=== PATIENT | female | born 1980 | race Caucasian/White ===

== ENCOUNTER → 2016-11-19 | Outpatient (CLI) | payer OTHER ==
--- NOTE | 2016-11-19 12:26 | REP ---
FOUR VIEW, RIGHT WRIST SERIES: 11/19/2016 INDICATION: Right wrist injury after fall 3 days ago. FINDINGS: The right wrist is without acute fracture, subluxation or dislocation. Alignment is anatomic. The visualized portions of distal forearm and metacarpals are intact. IMPRESSION: Negative right wrist series. MTDD
== END ==
LOC: M LRY 11:44
PROVIDERS: ATTEND Nurse Practitioner Family
DX: S69.91XA Unspecified injury of right wrist, hand and finger(s), initial encounter (principal); W18.30XA Fall on same level, unspecified, initial encounter; Y92.009 Unspecified place in unspecified non-institutional (private) residence as the place of occurrence of the external cause

== ENCOUNTER → 2018-07-24 | Outpatient (CLI) | payer OTHER | LOC: M LRY 14:14 | DX: M79.622 Pain in left upper arm (principal); M25.512 Pain in left shoulder | CPT/HCPCS: 96372 ==